=== PATIENT | female | born 1970 | race Caucasian/White ===

== ENCOUNTER 2016-04-04 17:04 | Outpatient (CLI) | payer BC | END 2016-04-04 23:00 | LOC: LAB SRH 17:04 | DX: K22.70 Barrett's esophagus without dysplasia (principal); I10 Essential (primary) hypertension; K21.9 Gastro-esophageal reflux disease without esophagitis | CPT/HCPCS: 90074; 90100; 95059 ==

== ENCOUNTER 2016-04-15 19:01 | Emergency (ER) | payer BC, OTHER ==
--- NOTE | 2016-04-15 21:35 | ED NURSING NOTES ---
Clinical Report - Nurses [facility] [address] [place] [address] 04/15/2016 19:02 Patient: CLAUDINE GAONA TRIAGE Acuity: LEVEL 4. Chief Complaint: (suture check). Alert. No acute distress. JOSE COMA SCORE: Jose Coma Scale: 15- eyes open spontaneously (4); best verbal response- oriented x 4 (5); best motor response- obeys commands (6). --19:22 Disha Srinivasan R.N. 19:17 04/15/16. BP: 147/99. HR: 82. RR: 16. O2 saturation: 100%. Temp: 98.6 F (oral). --19:22 Disha Srinivasan R.N. Weight: 96.6 kg stated. Height/Length: 67 inches Per Patient. BMI: 33.4. --19:21 Disha Srinivasan R.N. Medications Zoloft Oral. --19:20 Disha Srinivasan R.N. Omeprazole Oral. --19:20 Disha Srinivasan R.N. Dilaudid Oral. --19:20 Disha Srinivasan R.N. Maalox Advanced Oral. --19:21 Disha Srinivasan R.N. Gas-X Oral. --19:21 Disha Srinivasan R.N. Allergies Codeine. --19:21 Disha Srinivasan R.N. Vicodin. --19:21 Disha Srinivasan R.N. History Arrived by private vehicle. Historian: patient. Accompanied by friend. Location: abdomen. Previous treatment: Previously seen at another facility two days ago. PAST MEDICAL HX: Immunizations: up-to-date. Last normal menstrual period now. SOCIAL HX: Never smoker. No alcohol use or drug use. FALL RISK ASSESSMENT: Fall risk assessment completed. No fall risk identified. NUTRITIONAL RISK ASSESSMENT: The nutritional risk assessment revealed no deficiencies. FUNCTIONAL ASSESSMENT: Functional assessment: no impairments noted. LEARNING NEEDS ASSESSMENT: The learning needs assessment revealed no barriers. SKIN INTEGRITY ASSESSMENT: Skin integrity risk assessment completed. No skin integrity risk identified. --: Disha Srinivasan R.N. PROBLEMS: Headache. Immunizations. Gastroesophageal Reflux Disease. Hiatal Hernia. Hypertension. Migraine Headache. --: Disha Srinivasan R.N. ADDITIONAL SURGERIES: Gastric sleeve. Hernia Repair. --: Disah Srinivasan R.N. Assessment GENERAL / NEURO / PSYCH: Alert. Oriented X 4. Appears in no acute distress. Patient appears calm and cooperative. RESPIRATORY: Respirations not labored. CVS: Capillary refill less than 2 seconds. GI / : Abdomen soft and nontender. SKIN: Mucous membranes are pink. Skin is warm and dry. -- Disha Srinivasan R.N. Interventions ID band on patient. To treatment room. --: Disha Srinivasan R.N. PHYSICAL ASSESSMENT Ambulatory to room. GENERAL / NEURO / PSYCH: Alert. Oriented X 4. Appears in no acute distress. EXTREMITIES: Extremity pulses are within normal limits. Capillary refill is less than 2 seconds in the extremities. SKIN: Skin is warm and dry. No signs or symptoms of infection. Sutures intact. --19: Disha Srinivasan R.N. NURSING PROGRESS NOTES 19:04/15/16. BP: 147/99. HR: 82. RR: 16. O2 saturation: 100%. Temp: 98.6 F (oral). --19:17 Disha Srinivasan R.N. 19:43 04/15/2016 Site #1 started via IV in the right antecubital space with an 20g angiocath, with aseptic technique and good blood return; one attempt. Blood drawn: rainbow set. Labeled in the presence of the patient and sent to the lab. --19:43 Disha Srinivasan R.N. 19:44 04/15/2016 Started bag #1 1000 mL IV Fluids IV NS (Saline); at 999 mL/hr over 1 hour(s) via site #1 via IV pump. Allergies verified and confirmed 5 rights. IV patency established. IV site checked: no pain, redness, or swelling. IV flushed thoroughly pre- and post-medication administration. --19:44 Disha Srinivasan R.N. 19:44 04/15/2016 Dilaudid (HYDROmorphone HCl PF) IVP 0.5 mg given over 1 minute(s) via site #1. Allergies verified, confirmed 5 rights and sedative warning given to the patient. IV patency established. IV site checked: no pain, redness, or swelling. IV flushed thoroughly pre- and post-medication administration. IVP given by RN. --19:44 Disha Srinivasan R.N. 19:45 04/15/2016 Zofran (Ondansetron HCl) IVP 4 mg given over 1 minute(s) via site #1. Allergies verified and confirmed 5 rights. IV patency established. IV site checked: no pain, redness, or swelling. IV flushed thoroughly pre- and post-medication administration. IVP given by RN. --19:45 Disha Srinivasan R.N. 20:34 04/15/2016 Potassium Chloride (Potassium Chloride ER) PO 40 meq given. Allergies verified and confirmed 5 rights. --20:34 Disha Srinivasan R.N. 20:43 04/15/16. Checked patient name and birthdate: patient confirmed. Clean catch urine collected with return of constantino-colored clear urine; sample sent to lab for urinalysis. Specimen labeled in the presence of the patient. --20:43 Disha Srinivasan R.N. 20:45 04/15/2016 IV Fluids IV NS Discontinued: bag #1 infused. Total amount infused: 1000 mL. IV patency established. IV site checked: no pain, redness, or swelling. IV flushed thoroughly. --22:55 Disha Srinivasan R.N. 21:45 04/15/2016 Site #1 removed upon discharge. Catheter intact. Manual pressure and bandage applied. --22:56 Disha Srinivasan R.N. DISPOSITION / DISCHARGE Departure time: 2149Apr 15 2016. Condition at departure: improved and stable. No learning barriers present. Discharge instructions provided and reviewed with the patient. Patient verbalized understanding. Written instructions provided in Latvian. The patient was discharged by the physician. She was discharged home and accompanied by sister. She left the Emergency Department ambulatory and via private vehicle. Driving (sister). --23:02 Disha Srinivasan R.N. 22:57 04/15/16. BP: 106/86. HR: 84. RR: 12. O2 saturation: 100% on room air. Temp: 98.3 F (oral). Pain level now: 08/02. --23:02 Disha Srinivasan R.N. Locked/Released at 04/15/2016 23:02 by Disha Srinivasan R.N.
--- NOTE | 2016-04-15 21:35 | ED ORDER SUMMARY ---
..... Patient: CLAUDINE GAONA OrderSheet [facility] VisitID: [id number] [place] [address] 45y, F Registration Date/Time: 04/15/2016 ORDER SHEET Weight: 96.6 kg (stated) Allergies: Codeine, Vicodin GENERAL ORDERS: CBC w Diff Urgent (19:04/15/2016 [facility]) (Ack 19:39 [place]) (19:43 MWinterer R.N.) CMP Urgent (:04/15/2016 [facility]) (Ack 19:39 [place]) (19:43 MWinterer R.N.) UA-Culture if indicated Urgent (:04/15/2016 [facility]) (Ack 19:39 [place]) (20:42 MWinterer R.N.) MEDICATION ORDERS: Potassium Chloride PO 40 meq (NOW) (20:29 04/15/2016 [facility]) (Ack 20:31 MWinterer R.N.) (20:34 MWinterer R.N.) IV FLUIDS: IV NS : initial bolus 1000 mL (1000 mL/hr), then 250 mL/hr for X2 (NOW) (19:04/15/2016 [facility]) (Ack 19:26 MWinterer R.N.) (19:44 MWinterer R.N.) Dilaudid IV 0.5 mg (HIGH ALERT MEDICATION, NOW) (19:04/15/2016 [facility]) (Ack 19:26 MWinterer R.N.) (19:44 MWinterer R.N.) Zofran IV 4 mg (NOW) (19:04/15/2016 [facility]) (Ack 19:26 MWinterer R.N.) (19:45 MWinterer R.N.) ORDER SHEET NOTES: [Electronically signed by Disha Srinivasan R.N. (23:02 04/15/2016)] [Electronically signed by Abdiaziz Reeves DO (07:45 04/17/2016)] [Electronically locked/signed by Disha Srinivasan R.N. (23:02 04/15/2016)]
--- NOTE | 2016-04-15 21:35 | ED CLINICAL REPORT ---
Clinical Report - Physicians/Mid Levels [facility] [address] [place] [address] 04/15/2016 19:02 Patient: CLAUDINE GAONA Time Seen: 19:14. Arrived- By private vehicle. Historian- patient. HISTORY OF PRESENT ILLNESS Chief Complaint: TENDER AREA and (Post operative abdominal pain and swelling). This started yesterday and is still present. It was gradual in onset and has been waxing/waning. It is described as painful. It has been located on the left abdomen. A cause has been identified. (Pt had recent abdominal surgery (gastric bypass) and now is concerned about left side of abdomen skin induration and color change. She is also noting some swelling in her left labial area). Similar symptoms previously: Recent medical care: The patient was seen recently at another facility and hospitalized (2 days ago). ( Pt had hiatal hernia surgery (?type) and gastric sleeve 2 days ago at [facility] in [place]). REVIEW OF SYSTEMS No fever, chills, sore throat, difficulty breathing or headache. No chest pain, diarrhea, difficulty with urination or vomiting. She has had abdominal pain. All systems otherwise negative, except as recorded above. PAST HISTORY PROBLEMS: Headache. Gastroesophageal Reflux Disease. Hiatal Hernia. Hypertension. Migraine Headache. SURGERIES: Gastric bypass Hernia Repair. Medications: Gas-X Oral. Maalox Advanced Oral. Dilaudid Oral. Omeprazole Oral. Zoloft Oral. Allergies: Codeine. Vicodin. SOCIAL HISTORY Never smoker. No alcohol use or drug use. ADDITIONAL NOTES The nursing notes have been reviewed. PHYSICAL EXAM Vital Signs: 04/15/2016 19:17 BP: 147/99. HR: 82. RR: 16. O2 saturation: 100%. Temp: 98.6 F. Appearance: Alert. Oriented X3. Anxious. Patient in mild distress. ENT: Nose normal. Pharynx normal. Neck: Neck supple. CVS: Normal heart rate and rhythm. Heart sounds normal. Respiratory: No respiratory distress. Breath sounds normal. Chest nontender. Abdomen: Mild tenderness diffusely and in the left side of the abdomen (left greater than right). No guarding, rebound tenderness or Hernandez's sign present. Skin: No cyanosis. No pallor. No diaphoresis. (Ecchymosis left abdominal wall consistent with post operative changes). Extremities: Normal external inspection. Extremities nontender. No calf tenderness. Neuro: Oriented X 3. No motor deficit. No sensory deficit. LABS, X-RAYS, AND EKG Laboratory Tests: UA-Culture if indicated: (RADHA: 04/15/2016 20:30) ( [facility] 04/15/2016 21:28) Final results Test Result Flag Units (Reference) URINE COLOR EMIL URINE APPEARANCE SL CLOUDY URINE GLUCOSE NEGATIVE (NEGATIVE) URINE BILIRUBIN NEGATIVE (NEGATIVE) URINE BILIRUBIN ICTOTEST NEGATIVE (NEGATIVE) URINE KETONE 3+ (NEGATIVE) URINE SPECIFIC GRAVITY 1.015 (1.010-1.030) URINE PH 5.5 (5.0-8.0) URINE PROTEIN TRACE (NEGATIVE) URINE UROBILINOGEN 0.2 EU/dL (0.2-1.0) URINE NITRITE NEGATIVE (NEGATIVE) URINE BLOOD 3+ (NEGATIVE) URINE LEUK ESTERASE NEGATIVE (NEGATIVE) URINE RBC 50-75 rbc/hpf (0-1) URINE WBC 5-10 wbc/hpf (0-1) URINE EPITHELIAL CELLS 3-5 EPI/hpf (0-5) URINE BACTERIA TRACE (<1+) (NONE SEEN) URINE COMMENT CULT NOT INDICATED URINE CULTURES ARE SET-UP BASED ON THE FOLLOWING CRITERIA:POSITIVE NITRITEPOSITIVE LEUKOCYTE ESTERASEGREATER THAN 10 WHITE BLOOD CELLSMODERATE (2+) OR GREATER BACTERIA CBC w Diff: (RADHA: 04/15/2016 19:35) ( [facility] 04/15/2016 20:10) Final results Test Result Flag Units (Reference) WHITE BLOOD COUNT 5.4 K/uL (4.5-11.5) RED BLOOD COUNT 4.37 M/uL (4.00-5.20) HEMOGLOBIN 12.3 gm/dL (12.0-16.0) HEMATOCRIT 37.5 % (36.0-46.0) MEAN CELL VOLUME 86 fL (80-100) MEAN CORPUSCULAR HGB 28 pg (26-34) MEAN CORPUSCULAR HGB CONC 33 g/dL (31-37) RED CELL DISTRIBUTION WIDTH 16.4 H % (11.6-14.8) PLATELET COUNT 300 K/uL (150-400) NEUTROPHIL % 67.6 % (50-75) LYMPH % 20.3 L % (25-40) MONO % 10.1 % (3-14) EOSINOPHIL % 1.8 % (0-4) BASOPHIL % 0.2 % (0-2) CMP: (RADHA: 04/15/2016 19:35) ( MsgRcvd 04/15/2016 20:25) Final results Test Result Flag Units (Reference) GLUCOSE 95 mg/dL (70-110) BUN 13 mg/dL (7-18) CREATININE 0.8 mg/dL (0.6-1.3) Estimated GFR >60 mL/min Estimated GFR- >60 mL/min Note: Persistent reduction over 3 months in eGFR<60 mL/min/1.73 m2 defines CKD. Patients with eGFR values>=60 mL/min/1.73 m2 may also have CKD if evidence ofpersistent proteinuria. Additional information may be foundat www.kidney.org. SODIUM 142 mmol/L (136-145) POTASSIUM 3.1 L mmol/L (3.5-5.1) CHLORIDE 105 mmol/L (98-107) CARBON DIOXIDE 29 mmol/L (21-32) CALCIUM 8.4 L mg/dL (8.5-10.1) TOTAL PROTEIN 6.5 g/dL (6.4-8.2) ALBUMIN 2.8 L g/dL (3.3-5.0) BILIRUBIN, TOTAL 0.4 mg/dL (0.0-1.0) ALKALINE PHOSPHATASE 163 H U/L (46-116) AST (SGOT) 38 H U/L (15-37) ALT (SGPT) 77 U/L (12-78) . Pulse Oximetry: 04/15/2016 19:17 O2 saturation: 100%. (FIO2 - room air). Interpretation: normal. PROGRESS AND PROCEDURES Course of Care: Normal Saline 1 liter IVPB given. Potassium Chloride 40 meq PO given. Zofran 4 mg IVP given. Dilaudid 0.5 mg IVP given. All seems c/w post operative changes after gastric bypass - left side abdomen reportedly involves more aggressive manipulation. Lower swelling is c/w dependent edema. Discussed case with on-call health care provider, (Billing call returned 19:52). Reviewed test results. Agreed upon treatment plan. Health care provider will see patient in office. Patient/family counseled. Old ED records reviewed. Disposition: Discharged. Condition: stable and improved. CLINICAL IMPRESSION Acute left upper quadrant and left lower quadrant abdominal pain. (post operative). Microscopic hematuria Abnormal liver function test: AST/SGOT and alkaline phosphatase. Hypokalemia INSTRUCTIONS Drink plenty of fluids. Warnings: Further evaluation is necessary in order to recheck abnormal lab, obtain test results, conduct further tests and assess the possibility of serious illness. It is very important to follow up with a physician. SEDATIVE MEDICATION: You were given sedative medication during your visit. Do not drive or operate dangerous machinery. CONTROLLED SUBSTANCE WARNINGS. GENERAL WARNINGS: Return or contact your physician immediately if your condition worsens or changes unexpectedly, if not improving as expected, or if other problems arise. Your Current Medications: CONTINUE TAKING THE FOLLOWING MEDICATIONS: Dilaudid Oral. Gas-X Oral. Maalox Advanced Oral. Omeprazole Oral. Zoloft Oral. Prescription Medications: Potassium Chloride 10 mEq: Take 1 orally every 12 hours. Dispense thirty (30). No refills. Follow-up: Follow up with your doctor Billing Sunday. (Electronically signed by Abdiaziz Reeves DO 04/17/2016 7:45)
--- NOTE | 2016-04-15 21:35 | ED ORDER SUMMARY ---
..... Patient: CLAUDINE GAONA OrderSheet [facility] VisitID: [id number] [place] [address] 45y, F Registration Date/Time: 04/15/2016 ORDER SHEET Weight: 96.6 kg (stated) Allergies: Codeine, Vicodin GENERAL ORDERS: CBC w Diff Urgent (19:04/15/2016 [facility]) (Ack 19:39 [place]) (19:43 MWinterer R.N.) CMP Urgent (:04/15/2016 [facility]) (Ack 19:39 [place]) (19:43 MWinterer R.N.) UA-Culture if indicated Urgent (:04/15/2016 [facility]) (Ack 19:39 [place]) (20:42 MWinterer R.N.) MEDICATION ORDERS: Potassium Chloride PO 40 meq (NOW) (20:29 04/15/2016 [facility]) (Ack 20:31 MWinterer R.N.) (20:34 MWinterer R.N.) IV FLUIDS: IV NS : initial bolus 1000 mL (1000 mL/hr), then 250 mL/hr for X2 (NOW) (19:04/15/2016 [facility]) (Ack 19:26 MWinterer R.N.) (19:44 MWinterer R.N.) Dilaudid IV 0.5 mg (HIGH ALERT MEDICATION, NOW) (19:04/15/2016 [facility]) (Ack 19:26 MWinterer R.N.) (19:44 MWinterer R.N.) Zofran IV 4 mg (NOW) (19:04/15/2016 [facility]) (Ack 19:26 MWinterer R.N.) (19:45 MWinterer R.N.) ORDER SHEET NOTES: [Electronically signed by Disha Srinivasan R.N. (23:02 04/15/2016)] [Electronically signed by Abdiaziz Reeves DO (07:45 04/17/2016)] [Electronically locked/signed by Disha Srinivasan R.N. (23:02 04/15/2016)]
--- NOTE | 2016-04-17 07:45 | ED MAR SUMMARY ---
..... Medication Administration Record [facility] [address] [place] [address] Patient: CLAUDINE GAONA Visit ID: [id number] 45y, F Weight: 96.6 kg Height/Length: 67 in BMI: 33.4 ALLERGIES: Vicodin, Codeine Start 19:04/15/2016 Disha Srinivasan R.N., Stop 20:04/15/2016 Disha Srinivasan R.N. Medication Administered: IV NS (SALINE), Dose: IV Fluids over 1 hour(s), Rate: 999 mL/hr, Dispensed: 1000 mL bag, Site: #1 right AC. Medication Ordered: IV NS : initial bolus 1000 mL (1000 mL/hr), then 250 mL/hr for X2 (NOW). Given :04/15/2016 Disha Srinivasan R.N. Medication Administered: DILAUDID [IVP] (HYDROMORPHONE HCL PF), Dose: 0.5 mg IVP over 1 minute(s), Site: #1 right AC. Medication Ordered: Dilaudid IV 0.5 mg (HIGH ALERT MEDICATION, NOW). Given :04/15/2016 Disha Srinivasan R.N. Medication Administered: ZOFRAN [IVP] (ONDANSETRON HCL), Dose: 4 mg IVP over 1 minute(s), Site: #1 right AC. Medication Ordered: Zofran IV 4 mg (NOW). Given 20:04/15/2016 Disha Srinivasan R.N. Medication Administered: POTASSIUM CHLORIDE [PO] (POTASSIUM CHLORIDE ER), Dose: 40 meq PO. Medication Ordered: Potassium Chloride PO 40 meq (NOW).
--- NOTE | 2016-04-17 07:45 | ED MED RECONCILIATION SUMMARY ---
Patient: CLAUDINE GAONA Medication Reconciliation Report [facility] VisitID: [id number] [place] [address] 45y, F Registration Date/Time: 04/15/2016 Weight: 96.6 kg Height/Length: 67 in. BMI: 33.4 ALLERGIES: Codeine, Vicodin The patient's Home Medications are listed below: CONTINUE TAKING THE FOLLOWING MEDICATIONS: Dilaudid Oral Gas-X Oral Maalox Advanced Oral Omeprazole Oral Zoloft Oral The source(s) of the original Home Medication information: Not obtained. The following Medications were given to the patient in the Emergency Department: IV NS IV Fluids bolus 0, then 999 mL/hr, administered: 04/15/2016 7:44:00 PM Dilaudid [IVP] IVP 0.5 mg, administered: 04/15/2016 7:44:00 PM Zofran [IVP] IVP 4 mg, administered: 04/15/2016 7:45:00 PM Potassium Chloride [PO] PO 40 meq, administered: 04/15/2016 8:34:00 PM The following Medications were prescribed to the patient: Potassium Chloride 10 mEq: Take 1 orally every 12 hours. Dispense thirty (30). No refills. -- Abdiaziz Reeves DO
--- NOTE | 2016-04-17 07:45 | ED MAR SUMMARY ---
..... Medication Administration Record [facility] [address] [place] [address] Patient: CLAUDINE GAONA Visit ID: [id number] 45y, F Weight: 96.6 kg Height/Length: 67 in BMI: 33.4 ALLERGIES: Vicodin, Codeine Start 19:04/15/2016 Disha Srinivasan R.N., Stop 20:04/15/2016 Disha Srinivasan R.N. Medication Administered: IV NS (SALINE), Dose: IV Fluids over 1 hour(s), Rate: 999 mL/hr, Dispensed: 1000 mL bag, Site: #1 right AC. Medication Ordered: IV NS : initial bolus 1000 mL (1000 mL/hr), then 250 mL/hr for X2 (NOW). Given :04/15/2016 Disha Srinivasan R.N. Medication Administered: DILAUDID [IVP] (HYDROMORPHONE HCL PF), Dose: 0.5 mg IVP over 1 minute(s), Site: #1 right AC. Medication Ordered: Dilaudid IV 0.5 mg (HIGH ALERT MEDICATION, NOW). Given :04/15/2016 Disha Srinivasan R.N. Medication Administered: ZOFRAN [IVP] (ONDANSETRON HCL), Dose: 4 mg IVP over 1 minute(s), Site: #1 right AC. Medication Ordered: Zofran IV 4 mg (NOW). Given 20:04/15/2016 Disha Srinivasan R.N. Medication Administered: POTASSIUM CHLORIDE [PO] (POTASSIUM CHLORIDE ER), Dose: 40 meq PO. Medication Ordered: Potassium Chloride PO 40 meq (NOW).
--- NOTE | 2016-04-17 07:45 | ED DISCHARGE INSTRUCTIONS ---
Patient: CLAUDINE GAONA General Instructions [facility] VisitID: [id number] [place] [address] 45y, F Registration Date/Time: 04/15/2016 Acute left upper quadrant and left lower quadrant abdominal pain. (post operative). Microscopic hematuria Abnormal liver function test: AST/SGOT and alkaline phosphatase. Hypokalemia INSTRUCTIONS Drink plenty of fluids. Warnings: Further evaluation is necessary in order to recheck abnormal lab, obtain test results, conduct further tests and assess the possibility of serious illness. It is very important to follow up with a physician. SEDATIVE MEDICATION: You were given sedative medication during your visit. Do not drive or operate dangerous machinery. CONTROLLED SUBSTANCE WARNINGS. GENERAL WARNINGS: Return or contact your physician immediately if your condition worsens or changes unexpectedly, if not improving as expected, or if other problems arise. Your Current Medications: CONTINUE TAKING THE FOLLOWING MEDICATIONS: Dilaudid Oral. Gas-X Oral. Maalox Advanced Oral. Omeprazole Oral. Zoloft Oral. Prescription Medications: Potassium Chloride 10 mEq: Take 1 orally every 12 hours. Dispense thirty (30). No refills. Follow-up: Follow up with your doctor Billing Sunday. ADDITIONAL INFORMATION Abdominal Pain, Unknown Cause (Female) The exact cause of your abdominal (stomach) pain is not certain. This does not mean that this is something to worry about, or the right tests were not done. Everyone likes to know the exact cause of the problem, but sometimes with abdominal pain, there is no clear-cut cause, and this could be a good thing. The good news is that your symptoms can be treated, and you will feel better. Your condition does not seem serious now; however, sometimes the signs of a serious problem may take more time to appear. For this reason,it is important for you to watch for any new symptoms, problems,or worsening of your condition. Over the next few days, the abdominal pain may come and go, or be continuous. Other common symptoms can include nausea and vomiting. Sometimes it can be difficult to tell if you feel nauseous, you may just feel bad and not associate that feeling with nausea. Constipation, diarrhea, and a fever may go along with the pain. The pain may continue even if treated correctly over the following days. Depending on how things go, sometimes the cause can become clear and may require further or different treatment. Additional evaluations, medications, or tests may be needed. Home care Your health care provider may prescribe medications for pain, symptoms, or an infection. Follow the health care provider's instructions for taking these medications. General care Rest until your next exam. No strenuous activities. Try to find positions that ease discomfort. A small pillow placed on the abdomen may help relieve pain. Something warm on your abdomen (such as a heating pad) may help, but be careful not to burn yourself. Diet Do not force yourself to eat, especially if having cramps, vomiting, or diarrhea. Water is important so you do not get dehydrated. Soup may also be good. Sports drinks may also help, especially if they are not too acidic. Make sure you don't drink sugary drinks as this can make things worse. Take liquids in small amounts. Do not guzzle them. Caffeine sometimes makes the pain and cramping worse. Avoid dairy products if you have vomiting or diarrhea. Don't eat large amounts at a time. Wait a few minutes between bites. Eat a diet low in fiber (called a low-residue diet). Foods allowed include refined breads, white rice, fruit and vegetable juices without pulp, tender meats. These foods will pass more easily through the intestine. Avoid whole-grain foods, whole fruits and vegetables, meats, seeds and nuts, fried or fatty foods, dairy, alcohol and spicy foods until your symptoms go away. Follow-up care Follow up with your health care provider as instructed, or if your pain does not begin to improve in the next 24 hours. When to seek medical care Seek prompt medical care if any of the following occur: Pain gets worse or moves to the right lower abdomen New or worsening vomiting or diarrhea Swelling of the abdomen Unable to pass stool for more than three days Fever of 100.4F (38C) or higher, or as directed by your healthcare provider. Blood in vomit or bowel movements (dark red or black color) Jaundice (yellow color of eyes and skin) Weakness, dizziness Chest, arm, back, neck or jaw pain Unexpected vaginal bleeding or missed period Call 911 Call emergency services if any of the following occur: Trouble breathing Confusion Fainting or loss of consciousness Rapid heart rate Seizure Hypokalemia Hypokalemia means a low level of potassium in the blood. This most often occurs in patients who take diuretics (water pills). It can also occur due to severe vomiting or diarrhea. A mild case usually causes no symptoms. It is only found with blood testing. More severe potassium loss causes generalized weakness, muscle or abdominal cramping, heart palpitations (rapid or irregular heartbeats) and low blood pressure. Home Care: 1) Take any potassium supplements prescribed. 2) Eat foods rich in potassium. The highest amount is found in artichoke, baked potatoes, spinach, cantaloupe, honeydew melon, cod, halibut, salmon, and scallops. White, red, or ybarra beans are also very good sources. A modest amount is found in orange juice, bananas, carrots, and tomato juice. 3) Certain types of diuretics (water pills), such as Lasix (furosemide), require that you take potassium supplements for as long as you take the diuretic pills. If you are taking a diuretic, discuss the need for potassium supplements with your doctor. Follow Up with your doctor for a repeat blood test within the next week or as advised by our staff. Get Prompt Medical Attention if any of the following occur: -- Increased weakness -- Feeling dizzy -- Irregular heartbeat, extra beats or very fast heart rate -- Fainting spell Blood In The Urine Blood in the urine ("hematuria") has many possible causes. If it occurs after an injury (such as a car accident or fall), it is most often a sign of bruising to the kidney or bladder. Common medical causes of blood in the urine include urinary tract infection, kidney stone, inflammation, tumors, or certain other diseases of the kidney or bladder. Menstruation can cause blood to appear in the urine sample, although it is not coming from the urinary tract. If only a trace amount of blood is present, it will show up on the urine test, even though the urine may be yellow and not pink or red. This may occur with any of the above conditions, as well as heavy exercise or high fever. In this case, your doctor may want to repeat the urine test on another day. This will show if the blood is still present. If so, then other tests can be done to find out the cause. Home Care: If your urine does not appear bloody (pink, brown or red) then you do not need to restrict your activity in any way. If you can see blood in your urine, rest and avoid heavy exertion until your next exam. Do not use aspirin or anti-inflammatory medicine like ibuprofen (Motrin, Advil) or naproxen (Naprosyn, Aleve). These thin the blood and may increase bleeding. Follow Up with your doctor or as advised by our staff. If you were injured and had blood in your urine, you should have a repeat urine test in 1-2 days. Contact your doctor or return to this facility for this test. [NOTE: A radiologist will review any X-rays that were taken. We will notify you of any new findings that may affect your care.] Get Prompt Medical Attention if any of the following occur: Bright red blood or blood clots in the urine (if a new symptom) Weakness, dizziness or fainting New groin, abdominal or back pain Fever of 100.4F (38C) or higher, or as directed by your healthcare provider Repeated vomiting Bleeding from nose, gums or easy bruising You have been given the following additional information: Abdominal Pain, Unknown Cause, (Female) Hypokalemia Hematuria (Electronically signed by Abdiaziz Reeves DO 04/17/2016 7:45)
--- NOTE | 2016-04-17 07:45 | ED MED RECONCILIATION SUMMARY ---
Patient: CLAUDINE GAONA Medication Reconciliation Report [facility] VisitID: [id number] [place] [address] 45y, F Registration Date/Time: 04/15/2016 Weight: 96.6 kg Height/Length: 67 in. BMI: 33.4 ALLERGIES: Codeine, Vicodin The patient's Home Medications are listed below: CONTINUE TAKING THE FOLLOWING MEDICATIONS: Dilaudid Oral Gas-X Oral Maalox Advanced Oral Omeprazole Oral Zoloft Oral The source(s) of the original Home Medication information: Not obtained. The following Medications were given to the patient in the Emergency Department: IV NS IV Fluids bolus 0, then 999 mL/hr, administered: 04/15/2016 7:44:00 PM Dilaudid [IVP] IVP 0.5 mg, administered: 04/15/2016 7:44:00 PM Zofran [IVP] IVP 4 mg, administered: 04/15/2016 7:45:00 PM Potassium Chloride [PO] PO 40 meq, administered: 04/15/2016 8:34:00 PM The following Medications were prescribed to the patient: Potassium Chloride 10 mEq: Take 1 orally every 12 hours. Dispense thirty (30). No refills. -- Abdiaziz Reeves DO
== END 2016-04-15 21:50 | disposition home or self-care (01) ==
LOC: ED SRH 19:01
DX: G89.18 Other acute postprocedural pain (principal); R10.12 Left upper quadrant pain; R10.32 Left lower quadrant pain; R31.29 Other microscopic hematuria; R94.5 Abnormal results of liver function studies; E76.8 Other disorders of glucosaminoglycan metabolism; Z98.84 Bariatric surgery status; Z79.891 Long term (current) use of opiate analgesic; Z88.5 Allergy status to narcotic agent
CPT/HCPCS: 90004; 90100; 95059

== ENCOUNTER 2016-05-09 08:39 | Outpatient (CLI) | payer BC, OTHER | END 2016-05-09 23:00 | LOC: LAB SRH 08:39 | DX: R73.03 Prediabetes (principal); E78.5 Hyperlipidemia, unspecified; K21.9 Gastro-esophageal reflux disease without esophagitis; I10 Essential (primary) hypertension | CPT/HCPCS: 90032; 90074; 90100; 90233; 90251; 91096; 91282; 91286; 91504; 91505; 92668; 92670; 92690; 93140; 95059 ==

== ENCOUNTER 2016-06-14 09:41 | Outpatient (CLI) | payer BC, OTHER | END 2016-06-14 23:00 | LOC: LAB SRH 09:41 | DX: K90.9 Intestinal malabsorption, unspecified (principal); I10 Essential (primary) hypertension; D64.9 Anemia, unspecified | CPT/HCPCS: 90032; 90074; 90100; 90233; 90251; 91096; 91282; 91286; 91504; 91505; 92668; 92670; 93045; 95059 ==